=== PATIENT | male | born 1945 | race Caucasian/White ===

== ENCOUNTER 2017-01-31 05:51 | Day surgery (SDC) | payer MEDICARE, OTHER ==
--- NOTE | ~2017-01-31 | EGD ---
EGD REPORT [facility] [address] [address] NAME: KENAN NOE : [birth year] STATUS : REG [facility]#: [id number] AGE: 71 ADM/REG DATE : 01/31/17 MR#: [id number] REPORT SERV DATE: 01/31/17 DICTATED BY: BANDAR PEREZ DATE: 01/31/17 REPORT STATUS : Draft [facility]ANS[facility] DATE: 01/31/17 Endoscopy Center Patient Name: Kenan Noe Date of : 1945 Attending MD: BANDAR PEREZ MD Procedure Date No Time: 01/31/2017 Procedure: Upper GI endoscopy Indications: Brar's esophagus Referring MD: Andres Cronin Medicines: Propofol per Anesthesia Complications: No immediate complications. Procedure: Pre-Anesthesia Assessment: - ASA Grade Assessment: III - A patient with severe systemic disease. After obtaining informed consent, the endoscope was passed under direct vision. Throughout the procedure, the patient's blood pressure, pulse, and oxygen saturations were monitored continuously. The GIF H190 [id number] was introduced through the mouth, and advanced to the second part of duodenum. The upper GI endoscopy was accomplished without difficulty. The patient tolerated the procedure well. Findings: There were esophageal mucosal changes consistent with long-segment Brar's esophagus present in the lower third of the esophagus. The maximum longitudinal extent of these mucosal changes was 10 cm in length. Mucosa was biopsied with a cold forceps for histology in 4 quadrants at intervals of 2 cm in the middle third of the esophagus and in the lower third of the esophagus. One specimen bottle was sent to pathology. Brar's mucousa was seen from 35 cm to 45 cm measuring from the incisors hiatal hernia was from 35 cm to 42 cm A large hiatus hernia was present. Diffuse mild inflammation characterized by erosions and erythema was found in the stomach. The examined duodenum was normal. Impression: - Esophageal mucosal changes consistent with long-segment Brar's esophagus. Biopsied. - Hiatus hernia. - Chronic gastritis. - Normal examined duodenum. EGD REPORT [address] [address] NAME: KENAN NOE : [birth year] STATUS : REG [facility] PAT#: [id number] AGE: 71 ADM/REG DATE : 01/31/17 MR#: [id number] REPORT SERV DATE: 01/31/17 DICTATED BY: BANDAR PEREZ. DATE: 01/31/17 REPORT STATUS : Draft TRANSCRIBED BY: [employer] DATE: 01/31/17 Recommendation: - Return to my office in 3 weeks. Procedure Code(s): --- Professional --- 35809, Esophagogastroduodenoscopy, flexible, transoral; with biopsy, single or multiple Diagnosis Code(s): --- Professional --- K22.70, Brar's esophagus without dysplasia K44.9, Diaphragmatic hernia without obstruction or gangrene K29.50, Unspecified chronic gastritis without bleeding CPT copyright 2013 [employer]. All rights reserved. The codes documented in this report are preliminary and upon machine accountant review may be revised to meet current compliance requirements. Bandar Perez MD BANDAR PEREZ MD 01/31/2017 7:44 AM This report has been signed electronically. Number of Addenda: 0 Note Initiated On: 01/31/2017 7:11 AM Scope Withdrawal Time 0 hours 0 minutes 0 seconds [address] [place] [address]
--- NOTE | ~2017-01-31 | EGD ---
EGD REPORT [facility] [address] [address] NAME: KENAN NOE : [birth year] STATUS : REG [facility]#: [id number] AGE: 71 ADM/REG DATE : 01/31/17 MR#: [id number] REPORT SERV DATE: 01/31/17 DICTATED BY: BANDAR PEREZ DATE: 01/31/17 REPORT STATUS : Draft [facility]ED [facility]: [facility] DATE: 01/31/17 Endoscopy Center Patient Name: Kenan Noe Date of : 1945 Attending MD: BANDAR PEREZ MD Procedure Date No Time: 01/31/2017 Procedure: Colonoscopy Indications: Personal history of colonic polyps Referring MD: Andres Cronin Medicines: Propofol per Anesthesia Complications: No immediate complications. Procedure: Pre-Anesthesia Assessment: - ASA Grade Assessment: III - A patient with severe systemic disease. After I obtained informed consent, the scope was passed under direct vision. Throughout the procedure, the patient's blood pressure, pulse, and oxygen saturations were monitored continuously. The PCF H190L [id number] was introduced through the anus and advanced to the cecum, identified by appendiceal orifice and ileocecal valve. The ileocecal valve was photographed. Findings: The perianal and digital rectal examinations were normal. A sessile polyp was found in the sigmoid colon. The polyp was 4 mm in size. The polyp was removed with a cold biopsy forceps. Resection and retrieval were complete. Internal hemorrhoids were found during retroflexion and were Grade I (internal hemorrhoids that do not prolapse). Surgical scars were seen in the mid transverse colon. The rest of the colon was normal. \E\r Impression: - One 4 mm polyp in the sigmoid colon. Resected and retrieved. - Internal hemorrhoids. Recommendation: - Discharge patient to home (ambulatory). - Repeat colonoscopy in 5 years for surveillance. Procedure Code(s): --- Professional --- 01494, Colonoscopy, flexible, proximal to splenic flexure; with biopsy, single or multiple Diagnosis Code(s): --- Professional --- EGD REPORT [place] [address] [address] NAME: KENAN NOE : [birth year] STATUS : REG [facility] PAT#: [id number] AGE: 71 ADM/REG DATE : 01/31/17 MR#: [id number] REPORT SERV DATE: 01/31/17 DICTATED BY: BANDAR PEREZ. DATE: 01/31/17 REPORT STATUS : Draft TRANSCRIBED BY: [employer] DATE: 01/31/17 Z86.010, Personal history of colonic polyps CPT copyright 2013 [employer]. All rights reserved. The codes documented in this report are preliminary and upon rodeo rider review may be revised to meet current compliance requirements. Bandar Perez MD BANDAR PEREZ MD 01/31/2017 7:59 AM This report has been signed electronically. Number of Addenda: 0 Note Initiated On: 01/31/2017 7:30 AM Scope Withdrawal Time 0 hours 8 minutes 40 seconds [address] [id number]
--- NOTE | ~2017-01-31 | EGD ---
EGD REPORT [facility] [address] [address] NAME: KENAN NOE : [birth year] STATUS : [facility]#: [id number] AGE: 71 ADM/REG DATE : 01/31/17 MR#: [id number] REPORT SERV DATE: 02/06/17 DICTATED BY: BANDAR PEREZ DATE: 02/06/17 REPORT STATUS : Draft [facility]: [facility] DATE: 02/06/17 Endoscopy Center Patient Name: Kenan Noe Date of : 1945 Attending MD: BANDAR PEREZ MD Procedure Date No Time: 01/31/2017 Procedure: Colonoscopy Indications: Personal history of colonic polyps Referring MD: Andres Cronin Medicines: Propofol per Anesthesia Complications: No immediate complications. Procedure: Pre-Anesthesia Assessment: - ASA Grade Assessment: III - A patient with severe systemic disease. After I obtained informed consent, the scope was passed under direct vision. Throughout the procedure, the patient's blood pressure, pulse, and oxygen saturations were monitored continuously. The PCF H190L [id number] was introduced through the anus and advanced to the cecum, identified by appendiceal orifice and ileocecal valve. The ileocecal valve was photographed. Findings: The perianal and digital rectal examinations were normal. A sessile polyp was found in the sigmoid colon. The polyp was 4 mm in size. The polyp was removed with a cold biopsy forceps. Resection and retrieval were complete. Internal hemorrhoids were found during retroflexion and were Grade I (internal hemorrhoids that do not prolapse). Surgical scars were seen in the mid transverse colon. The rest of the colon was normal. \E\r Impression: - One 4 mm polyp in the sigmoid colon. Resected and retrieved. - Internal hemorrhoids. Recommendation: - Discharge patient to home (ambulatory). - Repeat colonoscopy in 5 years for surveillance. Procedure Code(s): --- Professional --- 34682, Colonoscopy, flexible, proximal to splenic flexure; with biopsy, single or multiple Diagnosis Code(s): --- Professional --- EGD REPORT [place] [address] [address] NAME: KENAN NOE : [birth year] STATUS : [facility] PAT#: [id number] AGE: 71 ADM/REG DATE : 01/31/17 MR#: [id number] REPORT SERV DATE: 02/06/17 DICTATED BY: BANDAR PEREZ. DATE: 02/06/17 REPORT STATUS : Draft TRANSCRIBED BY: [employer] DATE: 02/06/17 Z86.010, Personal history of colonic polyps CPT copyright 2013 [employer]. All rights reserved. The codes documented in this report are preliminary and upon motion picture critic review may be revised to meet current compliance requirements. Bandar Perez MD BANDAR PEREZ MD 01/31/2017 7:59 AM This report has been signed electronically. Number of Addenda: 0 Note Initiated On: 01/31/2017 7:30 AM Scope Withdrawal Time 0 hours 8 minutes [address] [place], [place] [address] [address]
[~2017-01-31 05:51] MED LIST: ASAB PO; AVODART PO; C5; CALCIUM; CALTRAT600 PO; CENTRUM TAB1 TAB PO; COZ50 PO; FLOMAX4 PO; IRON325 MG PO; JALYN 0.5-0.41 EACH PO; LEXAPRO10 PO; LIPITOR10 PO; LOP25 PO; OS250 PO; OXYCOD PO; PLAVIX PO; PROTONIX PO; SENOKOT8.6 MG OR; SENOKOTS PO; SENTAB PO; TOPXL25 PO; TOPXL50 PO
== END 2017-01-31 23:59 | disposition home or self-care (01) ==
LOC: DMU 05:51
PROVIDERS: Internal Medicine Gastroenterology
PROC: 0DBN8ZX Excision of Sigmoid Colon, Via Natural or Artificial Opening Endoscopic, Diagnostic (ICD-10-PCS; principal; 2017-01-31 07:30)
PROC: 0DB58ZX Excision of Esophagus, Via Natural or Artificial Opening Endoscopic, Diagnostic (ICD-10-PCS; 2017-01-31 07:30)
DX: D12.5 Benign neoplasm of sigmoid colon (principal); K22.70 Barrett's esophagus without dysplasia; I25.10 Atherosclerotic heart disease of native coronary artery without angina pectoris; G47.33 Obstructive sleep apnea (adult) (pediatric); K44.9 Diaphragmatic hernia without obstruction or gangrene; K29.50 Unspecified chronic gastritis without bleeding; M19.90 Unspecified osteoarthritis, unspecified site; K21.9 Gastro-esophageal reflux disease without esophagitis; D64.9 Anemia, unspecified; H91.90 Unspecified hearing loss, unspecified ear; I10 Essential (primary) hypertension; Z95.1 Presence of aortocoronary bypass graft; Z79.899 Other long term (current) drug therapy; Z98.890 Other specified postprocedural states
CPT/HCPCS: 88305